=== PATIENT | female | born 1960 | race Two or more races ===

== ENCOUNTER → 2025-06-28 | Outpatient (CLI) | payer MEDICAID, SELFPAY ==
--- NOTE | 2025-06-28 08:45 | XR_ITS ---
Examination: MRI abdomen with intravenous contrast. MRI abdomen without intravenous contrast. Date and time of exam: June 28, 2025 0909 hrs. Indications: Right upper abdominal pain beginning 2 years ago, multiple liver cysts on CT abdomen February 10, 2023 Technique: Multiple axial, sagittal and coronal sections of the abdomen obtained. Transverse images, TR 6020, TE 107. T1 weighted transverse images, TR 582, TE 9.5. T2-weighted sagittal images, TR 4000, TE 105. T2-weighted sagittal images, TR 4000, TE 5. Coronal images, TR 4210, TE 107. Axial and coronal images are obtained post 20 cc intravenous injection, gadolinium. Findings: Multiple nonenhancing liver cysts Spleen is not enlarged No gallstones no gallbladder wall thickening Normal common hepatic common bile duct. No pancreatic edema No ascites No hydronephrosis Postcontrast images demonstrate no abnormal enhancing liver splenic or renal lesion Aorta normal size No abdominal lymphadenopathy Impression: Benign liver cysts Normal gallbladder, normal common hepatic common bile duct Negative for pancreatic mass or edema
== END | disposition home or self-care (01) ==
PROVIDERS: Referring Provider Nurse Practitioner Family; Visit Provider Nurse Practitioner Family
DX: K76.89 Other specified diseases of liver (principal)
CPT/HCPCS: 74183; A9577